=== PATIENT | male | born 1965 | race Caucasian/White ===

== ENCOUNTER 2019-08-30 08:11 | Emergency (ER) | payer OTHER, SELFPAY ==
[2019-08-30 08:15] VITALS: BP 159/85; PULSE 113; RESP 20; TEMP 36.8; O2SAT 99; BMI 33.8
--- NOTE | 2019-08-30 08:25 | ED_ITS ---
HPI - General Adult General Chief complaint: Hypertension Stated complaint: High Blood Pressure. Both feet are tingly Time Seen by Provider: 08/30/19 08:23 History of Present Illness HPI narrative: CC: high Blood Pressure HPI: The patient is a 54-year-old male who states that he has a history of high blood pressure and he has noted that he has had a surgeon blood pressure 2 nights ago and again last night. Two nights ago his blood pressure was 170 systolic last night it was 160 systolic and it kept going up and down when he would recheck it. He has checked his blood pressure multiple times. He states that he is currently on Crestor at night and lisinopril 20 mg q.a.m.. He denies any fall or injury to his head. 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 He is 2 days away from completing his current book and analysis. He agrees that he is under some stress. He does not smoke cigarettes drink alcohol use any drugs. He denies ever doing any of this. He states that he has been a diabetic type 1 for 35 years. He admits to hypertension but denies a history of heart murmur stroke congestive heart failure myocardial infarction or asthma. This morning he did not have a headache but he developed a mild headache on the way into the emergency department which is now resolved. Related Data Home Medications Medication Instructions Recorded Confirmed rosuvastatin [Crestor] #0 04/14/17 insulin aspart U-100 [Novolog #0 06/01/17 PenFill U-100 Insulin] insulin glargine [Lantus U-100 16 unit SQ DAILY #0 06/01/17 Insulin] aspirin 325 mg PO Q4-6H PRN 08/30/19 08/30/19 lisinopril [Prinivil] 20 mg PO DAILY 08/30/19 08/30/19 rosuvastatin [Crestor] 10 mg PO DAILY 08/30/19 08/30/19 Previous Rx's Medication Instructions Recorded metoprolol succinate 25 mg PO BID #30 tab 08/30/19 Allergies Allergy/AdvReac Type Severity Reaction Status Date / Time No Known Drug Allergies Allergy Verified 08/30/19 09:04 Review of Systems Review of Systems Narrative: REVIEW OF SYSTEMS: CONSTITUTIONAL: No fever chills or sweats. NEUROLOGICAL: No current headache. He denies ever being told that he had a diabetic neuropathy. He has had some mild tingling and numbness in his toes which persist today. He has had no other paresis or paralysis. EENT: He denies any change in vision loss of vision double vision. CARDIO-PULMONARY: He has had no chest pain cough shortness of breath palpitations dizziness or feeling faint. HEMOTOLOGICAL: No bruising or bleeding GASTROINTESTINAL: No abdominal pain nausea vomiting diarrhea change in bowel habit GENITAL URINARY: No urinary symptoms. MUSCULOSKELETAL/ RHEUMATOLOGICAL: No back pain. DERMATOLOGICAL: No rash or bruising Patient History Social History Smoking Status: Never smoker Exam Narrative Exam Narrative: PHYSICAL EXAM: CONSTITUTIONAL: Awake, Alert, Oriented, Coherent, Cooperative in NAD pleasant. He does appear mildly anxious. HEAD: AT/NC EENT: PERRL, FROM of eyes, no discharge, no nystagmus MOUTH: He is wearing a mask. NECK: Supple, no obvious JVD, Trachea is midline without stridor, no palpable LN. SPINE: Palpationof the cervical, Thoracic, Lumbar or Sacral spine reveals no gross deformity or tenderness. No CVA tenderness. THORAX: No deformity, retractions, chest wall tenderness. LUNGS: Clear, symmetrical breath sounds without respiratory distress. HEART: Rapid heart rate that is regular without murmur or extra heart tones. ABDOMEN: Soft, non-tender, normal bowel sounds without guarding, rebound, rigidity or palpable mass. LYMPHATIC: no palpable lymph nodes or spleen. EXTREMITIES: No edema, deformity, tenderness or cyanosis. SKIN: No rash, bruising. NEURO: Awake, alert, oriented, conversive, cranial nerves II-XII are symmetrical , moves all 4 extremities and is ambulatory. MENTAL HEALTH: Appears mildly anxious. Initial Vital Signs Initial Vital Signs: Vital Signs Temperature 98.2 F 08/30/19 08:15 Pulse Rate 113 H 08/30/19 08:15 Respiratory Rate 20 08/30/19 08:15 Blood Pressure 159/85 H 08/30/19 08:15 Pulse Oximetry 99 08/30/19 08:15 Course Course Course Narrative: 0969 the patient denies excessively short of breath or lacking energy when he is working physically around the house. Most of his work that he is doing at home is related to the documents and his normal work. He works primarily at home. At rest after we administered the medications his heart rate is running around 92-95. He has been administered 0.5 mg of Ativan and 25 mg of Toprol XL orally. Orders Ordered: Discontinued Medications Lorazepam (Ativan) 0.5 mg PO NOW ONE Stop: 08/30/19 08:58 Last Admin: 08/30/19 09:07 Dose: 0.5 mg Documented by: IRWIN Metoprolol Succinate (Toprol Xl) 25 mg PO NOW ONE Stop: 08/30/19 08:58 Last Admin: 08/30/19 09:07 Dose: 25 mg Documented by: IRWIN Vital Signs Vital signs: Vital Signs - 8 hr 08/30/19 08:15 08/30/19 09:07 Temperature 98.2 F Pulse Rate 113 H 97 H Respiratory Rate 20 Blood Pressure 159/85 H 159/85 H Pulse Oximetry 99 Medical Decision Making Medical Records Medical records reviewed: Yes I reviewed the patient's medical records. Lab Data Lab results reviewed: Yes I reviewed the patient's lab results. Result diagrams: 08/30/19 09:10 08/30/19 09:10 Labs: Lab Results 08/30/19 08/30/19 Range/Units 09:10 09:10 WBC 7.1 (4.5-11.0) X10^3/uL RBC 4.36 L (4.5-5.9) X10^6/uL Hgb 13.0 L (13.5-17.5) g/dL Hct 37.3 L (41-53) % MCV 85.6 (80-100) fL MCH 29.8 (26-34) PG MCHC 34.8 (30-36) % RDW 13.3 (11.6-14.8) % Plt Count 224 (150-400) X10^3/uL Neut % (Auto) 73.8 (50-75) % Lymph % (Auto) 14.3 L (25-40) % [place] % (Auto) 5.8 (3-14) % Eos % (Auto) 5.5 H (2-4) % Baso % (Auto) 0.6 (0-2) % Neut # (Auto) 5200 (0200-3012) /uL Lymph # (Auto) 1000 L (3838-9642) /uL [place] # (Auto) 400 (0-900) /uL Eos # (Auto) 400 (0-450) /uL Baso # (Auto) 0 (0-100) /uL Sodium 135 L (137-145) mmol/L Potassium 4.5 (3.4-5.1) mmol/L Chloride 100 (98-107) mmol/L Carbon Dioxide 27 (22-32) mmol/L BUN 16 (9-20) mg/dL Creatinine 0.80 (0.66-1.25) mg/dL Estimated GFR > 60.0 (>60) mL/min BUN/Creatinine Ratio 20.0 (6-22) Glucose 213 H (70-100) mg/dL Calcium 9.3 (8.4-10.2) mg/dL Total Bilirubin 0.4 (0.2-1.3) mg/dL AST 38 (17-59) IU/L ALT 33 (<50) IU/L Alkaline Phosphatase 77 (38-126) U/L Total Creatine Kinase 76 (55-170) U/L CK-MB (CK-2) TNP CK-MB (CK-2) Rel Index TNP Troponin I < 0.012 (0.01-0.034) ng/mL Total Protein 7.3 (6.3-8.2) g/dL Albumin 4.2 (3.5-5.0) g/dL Globulin 3.1 (1.7-4.1) g/dL Albumin/Globulin Ratio 1.4 (1.0-2.8) Point of Care Testing Glucose POC 207 Point of care testing: Point of Care Testing Glucose POC 207 ECG Data Attestation: I personally reviewed and interpreted this ECG as follows: Interpretation: Patient's EKG obtained on August 29 at 08:3 2:44 a.m. reveals a sinus tachycardia with a ventricular rate of 102. The QRS is 102 milliseconds duration QTC is normal at 392 milliseconds axis is normal. There are no acute diagnostic ST or T-wave changes noted on the EKG. EKG changes are nonspecific and nondiagnostic. Discharge Plan Departure Patient Disposition: Home Clinical Impression: Anxiety, Sinus tachycardia Hypertension Qualifiers: Hypertension type: essential hypertension Qualified Code(s): I10 - Essential (primary) hypertension Discharge Date/Time: 08/30/19 10:12 Instructions: How stressed are you?, Essential Hypertension, DI for Dehydration -- Adult, DI for Tachycardia Activity Restrictions/Additional Instructions: 1. Take your medications as prescribed by your primary care physician. 2. When checking your blood pressure check it only 1 time. If your blood pressure is high and continuing to recheck your blood pressure usually causes anxiety in the blood pressure to climb. 3. Check your blood pressure consistently at sometime when you are calm and not acutely anxious such as in the morning when you 1st wake up and record that9 both diastolic and systolic numbers on graph paper so that you can see your blood pressure pattern over time. Check with Dr. Joshi as to what range he would like your blood pressure to be in. when checking your blood pressure also check your pulse and heart rate and record these values in a log to show Dr. Joshi. 4. If you developed a severe headache that lasts longer than 20-30 minutes, any confusion associated with a headache, any numbness tingling weakness or paralysis associated with a headache, any change in vision loss of vision, any chest pain, shortness of breath, dizziness, rapid heart rate, feeling faint weak and tired you need to proceed to the nearest emergency department. 5. Keep a log of the numbness and tingling pain and discomfort that you develop in your feet and hands or lower extremities. As a type 1 diabetic over time you will developed varying degrees of a diabetic neuropathy. 6. If at any time you have any questions doubts as to what is going on with your symptomatology you can proceed to the nearest emergency department to be evaluated. Prescriptions: New metoprolol succinate 25 mg tablet extended release 24 hr 25 mg PO BID Qty: 30 RF: 0 No Action rosuvastatin [Crestor] 5 MG tablet Qty: 0 RF: 0 insulin glargine [Lantus U-100 Insulin] 100 UNIT/1 ML solution 16 unit SQ DAILY Qty: 0 RF: 0 insulin aspart U-100 [Novolog PenFill U-100 Insulin] 100 UNIT/1 ML cartridge Qty: 0 RF: 0 aspirin 325 mg Tablet 325 mg PO Q4-6H PRN (Reason: Pain, Mild) RF: 0 lisinopril [Prinivil] 10 mg tablet 20 mg PO DAILY RF: 0 rosuvastatin [Crestor] 10 mg tablet 10 mg PO DAILY RF: 0 Referrals: Romero Joshi MD [Primary Care Provider] -
[2019-08-30 09:07] VITALS: BP 159/85; PULSE 97
[2019-08-30] MEDS: METOPROLOL ER 25 MG TABLET PO (09:07)
[2019-08-30] MEDS: LORazepam 0.5 MG TABLET PO (09:07)
[2019-08-30 09:20] LABS: Add Manual Diff / Slide Review NO; Basophils Absolute Auto 0 /uL (0-100); Basophils Percent Auto 0.6 % (0-2); Eosinophils Absolute Auto 400 /uL (0-450); Eosinophils Percent Auto 5.5 % (2-4); Hematocrit 37.3 % (41-53); Lymphocytes Absolute Auto 1000 /uL (1100-4500); Lymphocytes Percent Auto 14.3 % (25-40); Mean Corpuscular HGB Conc 34.8 % (30-36); Mean Corpuscular Hemoglobin 29.8 PG (26-34); Mean Corpuscular Volume 85.6 fL (80-100); Monocytes Absolute Auto 400 /uL (0-900); Monocytes Percent Auto 5.8 % (3-14); Neutrophils Absolute Auto 5200 /uL (1500-7000); Neutrophils Percent Auto 73.8 % (50-75); Platelet Count 224 X10^3/uL (150-400); Red Blood Cell Count 4.36 X10^6/uL (4.5-5.9); Red Cell Distribution Width 13.3 % (11.6-14.8); White Blood Cell Count 7.1 X10^3/uL (4.5-11.0)
[2019-08-30 09:28] VITALS: BP 151/85; BP 157/87; BP 163/87; PULSE 101; PULSE 102; PULSE 97
[2019-08-30 09:30] VITALS: BP 150/91; PULSE 96; RESP 16; O2SAT 98
--- NOTE | 2019-08-30 09:37 | PC.NURSE ---
0925 hrs: Pt reports headache 06/17.
[2019-08-30 09:38] LABS: Alanine Aminotransferase 33 IU/L (<50); Albumin 4.2 g/dL (3.5-5.0); Albumin Globulin Ratio 1.4 (1.0-2.8); Alkaline Phosphatase 77 U/L (38-126); Aspartate Aminotransferase 38 IU/L (17-59); Bilirubin Total 0.4 mg/dL (0.2-1.3); Blood Urea Nitrogen 16 mg/dL (9-20); Calcium 9.3 mg/dL (8.4-10.2); Carbon Dioxide 27 mmol/L (22-32); Chloride 100 mmol/L (98-107); Creatine Kinase 76 U/L (55-170); Estimated Glomerular Filt Rate > 60.0 mL/min (>60); Globulin 3.1 g/dL (1.7-4.1); Glucose 213 mg/dL (70-100); HEMOLYSIS < 15 (0-50); Potassium 4.5 mmol/L (3.4-5.1); Sodium 135 mmol/L (137-145); Total Protein 7.3 g/dL (6.3-8.2)
[2019-08-30 09:50] LABS: Troponin I < 0.012 ng/mL (0.01-0.034)
[2019-08-30 10:04] VITALS: BP 153/78; PULSE 96; RESP 14; O2SAT 99
== END 2019-08-30 10:12 | disposition home or self-care (01) ==
PROVIDERS: Emergency Provider Emergency Medicine; Family Provider Family Medicine; PCP Family Medicine
DX: I10 Essential (primary) hypertension (principal); R00.0 Tachycardia, unspecified; E10.9 Type 1 diabetes mellitus without complications; Z79.4 Long term (current) use of insulin; R20.2 Paresthesia of skin; F41.9 Anxiety disorder, unspecified
CPT/HCPCS: 36415; 80053; 82550; 82962; 84484; 85025; 93005; 99284